=== PATIENT | male | born 1945 | race Caucasian/White ===

== ENCOUNTER 2016-04-04 13:54 | Outpatient (CLI) | payer MEDICARE, OTHER ==
[2016-01-30 15:12] VITALS: BP 183/74
== END 2016-04-04 13:55 ==
LOC: CARD 13:54
PROVIDERS: ATTEND Internal Medicine Cardiovascular Disease
DX: I50.9 Heart failure, unspecified (principal)
CPT/HCPCS: G0463

== ENCOUNTER 2016-05-02 11:57 | Outpatient (CLI) | payer MEDICARE, OTHER ==
[2016-01-30 15:12] VITALS: BP 183/74
== END 2016-05-02 12:00 ==
LOC: CARD 11:57
PROVIDERS: ATTEND Internal Medicine Cardiovascular Disease
DX: I50.9 Heart failure, unspecified (principal); I48.91 Unspecified atrial fibrillation
CPT/HCPCS: G0463